=== PATIENT | male | born 1965 | race Caucasian/White ===

== ENCOUNTER 2016-07-24 16:11 | Emergency (ER) | payer OTHER ==
[~2016-07-24] VITALS: Ht 177.8 cm; Wt 99.6 kg
[2016-07-24 16:16] VITALS: TEMP 37
[2016-07-24] MEDS ORDERED: ASPIRIN 324 MG CHEW PO STA (16:27)
[2016-07-24] MEDS ORDERED: BUPR75TA20 PO (16:27)
[2016-07-24] MEDS ORDERED: ATOR-26 PO (16:27)
[2016-07-24] MEDS ORDERED: GLIP5TAB3 PO (16:27)
[2016-07-24] MEDS ORDERED: DPKEC500 PO (16:27)
[2016-07-24] MEDS ORDERED: METF-384 PO (16:27)
[2016-07-24] MEDS ORDERED: ASPCH81X PO (16:27)
[2016-07-24] MEDS ORDERED: IBUPROFEN 200 MG TAB PO STA (16:27)
[2016-07-24] MEDS ORDERED: ACETAMINOPHEN 500 MG TAB PO STA (16:27)
[2016-07-24] MEDS ORDERED: FLUO20CA35 PO (16:27)
--- NOTE | 2016-07-24 16:35 | EMERGENCY ROOM VISIT NOTE ---
History Report prepared by Ancelmo: Jen Sethi Under the Supervision of: Dr. Regina Fam M.D. First contact with patient: 16:18 Chief Complaint: CHEST PAIN Stated Complaint: CHEST PAIN /FR [facility] Nursing Triage Summary: Pt arrives via ALS litter for eval of left sided chest pain that began at 0810 and has been intermittent. Pt reports pain into left arm. SOB, nausea. Medic reports pain is reproducible with palpation. Pt has a pacer that was checked yesterday in [place]. History of Present Illness The patient is a 50 year old male who presents to the Emergency Room via ALS with complaints of left sided chest pain that radiates down left arm. This pain has been intermittent since around 0810 this morning. Each episode lasts around 10 minutes. It is worse with deep breathing. Associated symptoms include shortness of breath and nausea. The patient is not experiencing pain at this time. Source of History: patient Onset: 0810 this morning Position: chest (left) Timing: intermittent Modifying Factors (Worsening): breathing Associated Symptoms: + SOB, + nausea Review of Systems See HPI for pertinent positives & negatives. A total of 10 systems reviewed and were otherwise negative. Past Medical & Surgical Medical Problems: (1) Diabetes (2) Hypertension (3) Mitral valve prolapse Family History FH: HTN (hypertension) Social History Smoking Status: Never Smoker Drug Use: none Housing Status: other ([facility] ) Occupation Status: unemployed Current/Historical Medications Scheduled Aspirin (Aspirin Chewable), 81 MG PO DAILY Atorvastatin (Lipitor), 80 MG PO HS Bupropion (Wellbutrin), 75 MG PO BID Divalproex Sodium (Divalproex Sodium Dr), 500 MG PO BID Fluoxetine (Prozac), 40 MG PO QAM Glipizide (Glucotrol), 5 MG PO BID Metformin Hcl (Glucophage), 1,000 MG PO BID Allergies Coded Allergies: Sulfa Antibiotics (Unverified Allergy, Unknown, UNKNOWN, 07/24/16) Physical Exam Vital Signs Date Time Temp Pulse Resp B/P Pulse Ox O2 Delivery O2 Flow Rate FiO2 07/24/16 23:18 74 12 94 Room Air 07/24/16 22:58 155/97 07/24/16 22:28 162/94 07/24/16 22:18 76 23 94 Room Air 07/24/16 21:58 161/92 07/24/16 21:28 159/97 07/24/16 21:18 81 18 156/97 95 Room Air 07/24/16 21:18 85 17 95 Room Air 07/24/16 20:48 Room Air 07/24/16 19:25 73 18 142/91 95 Room Air 07/24/16 17:41 79 19 95 07/24/16 16:41 74 7 96 07/24/16 16:31 78 07/24/16 16:16 37.0 75 18 169/96 97 Room Air 07/24/16 16:15 169/96 Physical Exam CONSTITUTIONAL: No acute distress. HEENT: No icterus, moist mucous membranes NECK: No meningismus, trachea is midline. CARDIOVASCULAR: Regular rate, normal perfusion. Pacemaker in left chest. RESPIRATORY: Unlabored breathing. Clear to auscultation. GASTROINTESTINAL: Non-tender GENITOURINARY: No flank tenderness MUSCULOSKELETAL: Full range of motion NEUROLOGIC: No acute gross focal deficits. PSYCHIATRIC: Normal affect SKIN: Normal for ethnicity. Medical Decision & Procedures ER Provider Diagnostic Interpretation: X-ray results as stated below per interpretation by me and the radiologist. CHEST 2 VIEWS ROUTINE CLINICAL HISTORY: left sided cp today dyspnea COMPARISON STUDY: No previous studies for comparison. FINDINGS: Bipolar cardiac pacemaker in good position. Lungs are clear. Diaphragms smooth. Costophrenic angles are sharp. IMPRESSION: No acute process. Electronically signed by: Rogelio Andino M.D. 07/24/2016 5:24 PM Dictated Date/Time: 07/24/2016 5:23 PM Laboratory Results 07/24/16 16:30 Red Blood Count 4.79, Mean Corpuscular Volume 86.2, Mean Corpuscular Hemoglobin 29.6, Mean Corpuscular Hemoglobin Concent 34.4, Mean Platelet Volume 9.5, Neutrophils (%) (Auto) 66.6, Lymphocytes (%) (Auto) 20.3, Monocytes (%) (Auto) 12.1, Eosinophils (%) (Auto) 0.6, Basophils (%) (Auto) 0.2, Neutrophils # (Auto ) 5.34, Lymphocytes # (Auto) 1.63, Monocytes # (Auto) 0.97, Eosinophils # (Auto ) 0.05, Basophils # (Auto) 0.02 07/24/16 16:30 Test 07/24/16 16:30 2/16/17 18:47 White Blood Count 8.03 K/uL (4.8-10.8) Red Blood Count 4.79 M/uL (4.7-6.1) Hemoglobin 14.2 g/dL (14.0-18.0) Hematocrit 41.3 % (42-52) Mean Corpuscular Volume 86.2 fL (80-100) Mean Corpuscular Hemoglobin 29.6 pg (25-34) Mean Corpuscular Hemoglobin Concent 34.4 g/dl (32-36) Platelet Count 270 K/uL (130-400) Mean Platelet Volume 9.5 fL (7.4-10.4) Neutrophils (%) (Auto) 66.6 % Lymphocytes (%) (Auto) 20.3 % Monocytes (%) (Auto) 12.1 % Eosinophils (%) (Auto) 0.6 % Basophils (%) (Auto) 0.2 % Neutrophils # (Auto) 5.34 K/uL (1.4-6.5) Lymphocytes # (Auto) 1.63 K/uL (1.2-3.4) Monocytes # (Auto) 0.97 K/uL (0.11-0.59) Eosinophils # (Auto) 0.05 K/uL (0-0.5) Basophils # (Auto) 0.02 K/uL (0-0.2) RDW Standard Deviation 47.2 fL (36.4-46.3) RDW Coefficient of Variation 14.7 % (11.5-14.5) Immature Granulocyte % (Auto) 0.2 % Immature Granulocyte # (Auto) 0.02 K/uL (0.00-0.02) Prothrombin Time 11.3 SECONDS (9.0-12.0) Prothromb Time International Ratio 1.1 (0.9-1.1) Activated Partial Thromboplast Time 32.0 SECONDS (21.0-31.0) Partial Thromboplastin Ratio 1.2 D-Dimer < 190 ug/L FEU (0-500) Anion Gap 12.0 mmol/L (3-11) Est Creatinine Clear Calc Drug Dose 120.3 ml/min Estimated GFR () 116.1 Estimated GFR (Non- 100.2 BUN/Creatinine Ratio 13.3 (10-20) Calcium Level 8.8 mg/dl (8.5-10.1) Total Bilirubin 0.4 mg/dl (0.2-1) Aspartate Amino Transf (AST/SGOT) 12 U/L (15-37) Alanine Aminotransferase (ALT/SGPT) 23 U/L (12-78) Alkaline Phosphatase 83 U/L (45-117) Total Protein 7.1 gm/dl (6.4-8.2) Albumin 3.5 gm/dl (3.4-5.0) Globulin 3.6 gm/dl (2.5-4.0) Albumin/Globulin Ratio 1.0 (0.9-2) Troponin I < 0.015 ng/ml (0-0.045) Labs reviewed by ED physician. Medications Administered Medications (Trade) Dose Ordered Sig/Elizabeth Route Start Time Stop Time Status Last Admin Dose Admin Acetaminophen (Tylenol Tab) 1,000 mg NOW STAT PO 07/24/16 16:27 2 16:31 DC 07/24/16 17:00 1,000 MG Ibuprofen (Advil Tab) 400 mg NOW STAT PO 07/24/16 16:27 07/24/16 16:31 DC 07/24/16 17:01 400 MG Aspirin (Aspirin Chew) 324 mg NOW STAT PO 07/24/16 16:27 07/24/16 16:31 DC 07/24/16 17:00 324 MG ECG Indication: chest pain Rate (beats per minute): 74 Rhythm: normal sinus Findings: no ectopy, other (Normal axis, non specific ST segement ) ED Course 162: Past medical records reviewed. The patient was evaluated in room B10. A complete history and physical examination was performed. 1627: Ordered Aspirin 324 mg PO, Advil Tablet 400 mg PO, Tylenol Tablet 1,000 mg PO. 2020: I discussed the patient's case with Dr. Mcgowan ([facility] [place] [facility]). He will evaluate the patient for further management and care. Medical Decision Differential diagnoses include but are not limited to; musculoskeletal pain, cardiac PE. 50-year-old presents into the emergency department for evaluation of intermittent chest pain for several hours today. This is associated with shortness of breath at times and has lasted as long as 10-15 minutes. He's presently asymptomatic on my initial ER evaluation. He is noted to have several risk factors including diabetes. EKG satisfactory and first 2 troponins within normal limits. Admission arranged with hospitalist. Consults Time Called: 1958 Consulting Physician: Dr. Mcgowan ([facility] [place] [facility]) Returned Call: 2019 I discussed the patient's case with Dr. Mcgowan ([facility] [place] [facility]). He will evaluate the patient for further management and care. Impression Primary Impression: Chest pain, precordial Scribe Attestation The scribe's documentation has been prepared under my direction and personally reviewed by me in its entirety. I confirm that the note above accurately reflects all work, treatment, procedures, and medical decision making performed by me. Departure Information Dispostion Being Evaluated By Hospitalist Patient Instructions [facility]
[2016-07-24 16:45] LABS: BASO % 0.2 %; BASO ABS # 0.02 K/uL (0-0.2); COMPLETE YES; EOS % 0.6 %; HEMATOCRIT 41.3 % (42-52); IG% 0.2 %; LYMPH % 20.3 %; LYMPH ABS # 1.63 K/uL (1.2-3.4); MEAN CELL VOLUME 86.2 fL (80-100); MEAN CORPUSCULAR HEMOGLOBIN 29.6 pg (25-34); MEAN CORPUSCULAR HGB CONC 34.4 g/dl (32-36); MEAN PLATELET VOLUME 9.5 fL (7.4-10.4); MONO % 12.1 %; NEUT % 66.6 %; PLATELET COUNT 270 K/uL (130-400); RED BLOOD COUNT 4.79 M/uL (4.7-6.1); WHITE BLOOD COUNT 8.03 K/uL (4.8-10.8)
[2016-07-24 17:01] LABS: INR 1.1 (0.9-1.1); PARTIAL THROMBOPLASTIN RATIO 1.2; PROTHROMBIN TIME (PATIENT) 11.3 SECONDS (9.0-12.0)
[2016-07-24 17:13] LABS: BUN/CREATININE RATIO 13.3 (10-20); CALCIUM 8.8 mg/dl (8.5-10.1); CREATININE 0.85 mg/dl (0.60-1.40); POTASSIUM 4.1 mmol/L (3.5-5.1)
--- NOTE | 2016-07-24 17:25 | DIAGNOSTIC IMAGING REPORT ---
CHEST 2 VIEWS ROUTINE CLINICAL HISTORY: left sided cp today dyspnea COMPARISON STUDY: No previous studies for comparison. FINDINGS: Bipolar cardiac pacemaker in good position. Lungs are clear. Diaphragms smooth. Costophrenic angles are sharp. IMPRESSION: No acute process. Electronically signed by: Rogelio Andino M.D. 07/24/2016 5:24 PM Dictated Date/Time: 07/24/2016 5:23 PM
[2016-07-24 20:48] VITALS: Ht 177.8 cm; Wt 99.6 kg
--- NOTE | 2016-07-24 23:25 | Medical Consult ---
Consultation Date of Consultation: Jul 24, 2016. Attending Physician: History of Present Illness 50 y/o M w/Hx sinus pauses and a pacer, HTN, NIDDM. Does not have a history of cardiovascular disease. Presents from a local correctional facility with c/o intermittent CP with L arm pain beginning early AM. The pt was at [facility] one day prior for pacer interrogation. He states that he has had sinus pauses since 2002 when the initial pacer was placed. He had a few pauses while in the ER which did trigger his pacer. The pt was in the ER for an extended time period and had 2 sets of troponins which were negative. His EKG was repeated and reveals a NSR. His CP is reproducible and he has not had recurrent CP while in the ER. He did not have accompanying SOB, N/V, diaphoresis or lightheadedness. Past Medical/Surgical History Medical Problems: (1) Chest pain, precordial Status: Acute 2) HTN 3) NIDDM 4) Depression 5) Pacer placed for sinus pauses 2002 - 2011 Family History FH: HTN (hypertension) Social History Smoking Status: Former Smoker Drug Use: none Housing Status: other ([facility] ) Occupation Status: unemployed Allergies Coded Allergies: Sulfa Antibiotics (Unverified Allergy, Unknown, UNKNOWN, 07/24/16) Home Medications Reviewed Review of Systems Constitutional: No chills, No fever, No sweats Eyes: No eye pain, No worsening of vision ENT: No hearing loss, No nasal symptoms, No unusual epistaxis Respiratory: No cough, No sputum, No wheezing Cardiovascular: + chest pain, + problem reported (Sinus pauses as above ), No PND, No orthopnea Abdomen: No nausea, No pain, No vomiting Musculoskeletal: No joint pain, No muscle pain Genitourinary - Male: No dysuria, No hematuria, No urinary frequency Neurologic: No memory loss, No paralysis, No weakness Psychiatric: No depression symptoms Endocrine: No fatigue Hematologic / Lymphatic: No abnormal bleeding/bruising Integumentary: No rash Allergic / Immunologic: No environmental allergies, No seasonal allergies Physical Exam Date Time Temp Pulse Resp B/P Pulse Ox O2 Delivery O2 Flow Rate FiO2 07/24/16 21:18 81 18 156/97 95 Room Air 07/24/16 20:48 Room Air 07/24/16 19:25 73 18 142/91 95 Room Air 07/24/16 17:41 79 19 95 07/24/16 16:41 74 7 96 07/24/16 16:31 78 07/24/16 16:16 37.0 75 18 169/96 97 Room Air 07/24/16 16:15 169/96 General Appearance: WD/WN, no apparent distress Head: normocephalic, atraumatic Eyes: normal inspection, PERRL, EOMI ENT: normal ENT inspection, hearing grossly normal, TMs normal, pharynx normal Neck: supple, no JVD Respiratory/Chest: lungs clear, normal breath sounds, + pertinent finding ( tender to palpation of L ant chest) Cardiovascular: regular rate, rhythm, no edema, no gallop, no JVD, no murmur, normal peripheral pulses Abdomen/GI: normal bowel sounds, non tender, soft Back: normal inspection, no CVA tenderness Extremities/Musculoskelatal: normal inspection, no calf tenderness, normal capillary refill, no pedal edema, normal range of motion Neurologic/Psych: dry color mixer II-XII nml as tested, no motor/sensory deficits, alert, normal mood/affect, normal reflexes, oriented x 3 Skin: normal color, warm/dry, no rash Laboratory Results Last 24 Hours Test 07/24/16 16:30 07/24/16 18:47 White Blood Count 8.03 K/uL Red Blood Count 4.79 M/uL Hemoglobin 14.2 g/dL Hematocrit 41.3 % Mean Corpuscular Volume 86.2 fL Mean Corpuscular Hemoglobin 29.6 pg Mean Corpuscular Hemoglobin Concent 34.4 g/dl Platelet Count 270 K/uL Mean Platelet Volume 9.5 fL Neutrophils (%) (Auto) 66.6 % Lymphocytes (%) (Auto) 20.3 % Monocytes (%) (Auto) 12.1 % Eosinophils (%) (Auto) 0.6 % Basophils (%) (Auto) 0.2 % Neutrophils # (Auto) 5.34 K/uL Lymphocytes # (Auto) 1.63 K/uL Monocytes # (Auto) 0.97 K/uL Eosinophils # (Auto) 0.05 K/uL Basophils # (Auto) 0.02 K/uL RDW Standard Deviation 47.2 fL RDW Coefficient of Variation 14.7 % Immature Granulocyte % (Auto) 0.2 % Immature Granulocyte # (Auto) 0.02 K/uL Prothrombin Time 11.3 SECONDS Prothromb Time International Ratio 1.1 Activated Partial Thromboplast Time 32.0 SECONDS Partial Thromboplastin Ratio 1.2 D-Dimer < 190 ug/L FEU Sodium Level 139 mmol/L Potassium Level 4.1 mmol/L Chloride Level 105 mmol/L Carbon Dioxide Level 22 mmol/L Anion Gap 12.0 mmol/L Blood Urea Nitrogen 11 mg/dl Creatinine 0.85 mg/dl Est Creatinine Clear Calc Drug Dose 120.3 ml/min Estimated GFR () 116.1 Estimated GFR (Non- 100.2 BUN/Creatinine Ratio 13.3 Random Glucose 66 mg/dl Calcium Level 8.8 mg/dl Total Bilirubin 0.4 mg/dl Aspartate Amino Transf (AST/SGOT) 12 U/L Alanine Aminotransferase (ALT/SGPT) 23 U/L Alkaline Phosphatase 83 U/L Troponin I < 0.015 ng/ml < 0.015 ng/ml Total Protein 7.1 gm/dl Albumin 3.5 gm/dl Globulin 3.6 gm/dl Albumin/Globulin Ratio 1.0 Assessment & Plan 50 y/o M w/Hx sinus pauses and a pacer, HTN, NIDDM. Does not have a history of cardiovascular disease. Presents from a local correctional facility with c/o intermittent CP with L arm pain beginning early AM. The pt was at [facility] one day prior for pacer interrogation. He states that he has had sinus pauses since 2002 when the initial pacer was placed. He had a few pauses while in the ER which did trigger his pacer. The pt was in the ER for an extended time period and had 2 sets of troponins which were negative. His EKG was repeated and reveals a NSR. His CP is reproducible and he has not had recurrent CP while in the ER. He did not have accompanying SOB, N/V, diaphoresis or lightheadedness. 1) CP - currently resolved - trop (-) x 2 - EKG x 2 NSR - pain in chest reproducible O/E Advise on D/C and outpt stress recommended due to risk factors of HTN and NIDDM 2) Pacer - sinus pauses - pain did not correlate with occasional pauses in the ER - pacer is functional and was interrogated one day prior 3) HTN - cont home meds - normotensive in hospital 4) NIDDM - cont Glipizide - Metformin
--- NOTE | 2016-07-25 01:53 | Discharge Instructions ---
Discharge Instructions Admission Reason for Admission: Chest Pain /Fr [facility] Discharge Discharge Diagnosis / Problem: CP Discharge Goals Goal(s): Diagnostic testing Activity Recommendations Activity Limitations: per Instructions/Follow-up section Lifting Limitations: none Exercise/Sports Limitations: until after follow-up appointment May Resume Sexual Activity: after follow-up appointment . Instructions / Follow-Up Instructions / Follow-Up Stress test to be scheduled per correctional facility Current Hospital Diet Patient's current hospital diet: Regular Diet, AHA Diet (Heart Healthy) Discharge Diet Recommended Diet: AHA Diet (Heart Healthy), Diabetes Type 2 Diet Fluid Restriction: None Pending Studies Studies pending at discharge: no Laboratory Results Trop (-) x 2 Medical Emergencies . Who to Call and When: Medical Emergencies: If at any time you feel your situation is an emergency, please call 911 immediately. . Non-Emergent Contact Non-Emergency issues call your: Primary Care Provider . . "Provider Documentation" section prepared by Heron Mcgowan. VTE Core Measure Inpt VTE Proph given/why not?: Treatment not indicated
[2016-07-25 01:58] VITALS: BP 152/90
[2016-07-25 02:02] VITALS: PULSE 77; O2SAT 95
== END 2016-07-25 02:20 | disposition home or self-care (01) ==
LOC: EDBD 16:11 → C.EDB 16:15
DX: R07.2 Precordial pain (principal); I10 Essential (primary) hypertension; E11.9 Type 2 diabetes mellitus without complications; I34.1 Nonrheumatic mitral (valve) prolapse; Z79.82 Long term (current) use of aspirin; Z79.84 Long term (current) use of oral hypoglycemic drugs; Z79.899 Other long term (current) drug therapy; Z88.2 Allergy status to sulfonamides; Z82.49 Family history of ischemic heart disease and other diseases of the circulatory system

== ENCOUNTER → 2016-09-11 | Outpatient (CLI) | payer OTHER ==
[~2016-09-11] MED LIST: ASPCH81X PO; ATOR-26 PO; BUPR75TA20 PO; DIPH25CA48 PO; DPKEC500 PO; FLUO20CA35 PO; GLIP5TAB3 PO; METF-384 PO
--- NOTE | 2016-09-11 16:43 | EXERCISE STRESS TEST ---
ORDERING PHYSICIAN: Dr. Gupta of [facility]. TIME: 16:17 p.m. PROCEDURE: 1. Exercise treadmill stress testing. INDICATIONS: 1. Chest pain. CONSENT: Informed written consent was obtained. PROCEDURAL DETAILS: The patient exercised as per standard Mahesh protocol. He exercised a total of 2 minutes and 29 seconds, which was within the first stage of the Mahesh protocol. He achieved 4.6 mets. The baseline heart rate was 97 beats per minute and sosa to a maximum of 157 beats per minute. This represents 93% maximum predicted heart rate. The resting blood pressure was 156/84 mmHg. Peak blood pressure was 213/82 mmHg. The patient reported shortness of breath. There was no chest pain reported. Study was terminated due to shortness of breath and fatigue. Resting ECG demonstrated sinus rhythm, 100 beats per minute. Exercise ECG demonstrated no arrhythmia. There was [address] depression in leads III, IV and V6. There was [address] depression in leads II and V5. ST changes returned to baseline by 5 minutes and 15 seconds into recovery. IMPRESSION: 1. Abnormal exercise stress electrocardiogram with [address] depression in leads III, aVF, and V6, which returned to baseline by 5 minutes and 15 seconds into recovery. 2. Target heart rate attained, achieving 93% maximum predicted heart rate. 3. Exertional dyspnea reported. 4. No chest pain. 5. Hypertensive response to exercise. 6. No arrhythmia. 7. Poor exercise tolerance; 4.6 mets.
== END ==
LOC: C.CPL 09:44
PROVIDERS: ATTEND Physician Assistant Medical
DX: R07.9 Chest pain, unspecified (principal); I49.5 Sick sinus syndrome; E11.9 Type 2 diabetes mellitus without complications; I10 Essential (primary) hypertension; E78.5 Hyperlipidemia, unspecified; F33.1 Major depressive disorder, recurrent, moderate

== ENCOUNTER 2017-01-14 10:11 | Emergency (ER) | payer OTHER ==
[~2017-01-14] VITALS: Ht 180.3 cm; Wt 110.8 kg
[~2017-01-14 10:11] MED LIST changes: -DIPH25CA48 PO
[2017-01-14 10:15] VITALS: TEMP 36.9; Ht 180.3 cm; Wt 110.8 kg
[2017-01-14 10:42] VITALS: O2SAT 94
[2017-01-14] MEDS ORDERED: BND25CL PO (11:02)
--- NOTE | 2017-01-14 11:26 | DIAGNOSTIC IMAGING REPORT ---
CHEST ONE VIEW PORTABLE HISTORY: Atypical Chest Pain COMPARISON: Chest 07/24/2016. FINDINGS: A few linear bibasilar densities are not significantly changed. This favors scarring or atelectasis. Otherwise, the lungs are clear. No evidence for pulmonary edema. No pleural effusions. No pneumothorax. The heart is normal in size. Left-sided pacemaker. Cervical spinal fusion hardware. IMPRESSION: No significant change compared to the prior study. No acute process. Electronically signed by: Atul Bynum M.D. 01/14/2017 11:25 AM Dictated Date/Time: 01/14/2017 11:24 AM
[2017-01-14 11:41] LABS: BASO % 0.5 %; BASO ABS # 0.03 K/uL (0-0.2); COMPLETE YES; EOS % 0.6 %; HEMATOCRIT 40.6 % (42-52); IG% 0.2 %; LYMPH % 17.5 %; LYMPH ABS # 1.15 K/uL (1.2-3.4); MEAN CELL VOLUME 87.9 fL (80-100); MEAN CORPUSCULAR HEMOGLOBIN 29.4 pg (25-34); MEAN CORPUSCULAR HGB CONC 33.5 g/dl (32-36); MEAN PLATELET VOLUME 9.8 fL (7.4-10.4); NEUT % 69.2 %; PLATELET COUNT 292 K/uL (130-400); RED BLOOD COUNT 4.62 M/uL (4.7-6.1); WHITE BLOOD COUNT 6.56 K/uL (4.8-10.8)
[2017-01-14 11:47] LABS: BLOOD UREA NITROGEN 10 mg/dl (7-18); CALCIUM 8.7 mg/dl (8.5-10.1); CARBON DIOXIDE 26 mmol/L (21-32); CHLORIDE 106 mmol/L (98-107); CREATININE 0.86 mg/dl (0.60-1.40); GLUCOSE 73 mg/dl (70-99); POTASSIUM 4.3 mmol/L (3.5-5.1); SODIUM 138 mmol/L (136-145)
--- NOTE | 2017-01-14 14:07 | DIAGNOSTIC IMAGING REPORT ---
BILATERAL LOWER EXTREMITY VENOUS DOPPLER CLINICAL HISTORY: Bilateral lower extremity swelling. Shortness of breath. COMPARISON STUDY: No previous studies for comparison. TECHNIQUE: Sonography of the deep venous system of the bilateral lower extremities was performed. Compression and augmentation were evaluated. FINDINGS: The bilateral common femoral, superficial femoral and popliteal veins were compressible. Augmentation was normal. Flow was shown within the deep calf vessels. IMPRESSION: No evidence of deep venous thrombus within the bilateral lower extremities. Electronically signed by: David Samayoa M.D. 01/14/2017 2:05 PM Dictated Date/Time: 01/14/2017 2:03 PM
[2017-01-14] MEDS ORDERED: FUROSEMIDE 40 MG/4 ML VIAL IV STA (14:15)
--- NOTE | 2017-01-14 15:34 | EMERGENCY ROOM VISIT NOTE ---
History Report prepared by Ancelmo: García Madrigal Under the Supervision of: Dr. Taj Fernandez D.O. First contact with patient: 10:42 Chief Complaint: RESPIRATORY PROBLEMS Stated Complaint: CHF Nursing Triage Summary: pt reports sob started this am at 0615. has productive blackish/jennings flem. sob while sitting still. denies any chest pain History of Present Illness The patient is a 51 year old male who presents to the Emergency Room with complaints of constant shortness of breath starting around 0615 this morning. The patient states that when he woke up he started having shortness of breath which is worsened while laying down and is improved with sitting up. He states that he was having some diabetic foot pain as well, he has been gaining about 50 pounds in the past month, and he has been getting swelling in his legs. The patient states that he has a history of heart attacks, and he has a pacemaker. He states that he does not have a history of heart failure, and he just recently started Depakote for depression. Pt denies headache, change in vision , fevers, chest pain, nausea, vomiting, diarrhea, pain with urination, and melena. No swelling of his calves, no coughing up blood, no previous clots, no recent surgeries, and no recent trips. [facility] discussion with the jail they note that he has gained 6 pounds since December 29. Source of History: patient Onset: 0615 this morning Position: other (global) Quality: other (shortness of breath) Timing: constant Modifying Factors (Worsening): other (lying down) Modifying Factors (Relieving): other (sitting up) Note: Associated symptoms: Weight gain Review of Systems See HPI for pertinent positives & negatives. A total of 10 systems reviewed and were otherwise negative. Past Medical & Surgical Medical Problems: (1) Diabetes (2) Hypertension (3) Mitral valve prolapse Family History FH: HTN (hypertension) Social History Smoking Status: Current Every Day Smoker Drug Use: none Housing Status: other Occupation Status: unemployed Current/Historical Medications Scheduled Aspirin (Aspirin Chewable), 81 MG PO DAILY Atorvastatin (Lipitor), 80 MG PO HS Diphenhydramine HCl (Diphenhydramine HCl), 25 MG PO HS Divalproex Sodium (Divalproex Sodium Dr), 500 MG PO BID Fluoxetine (Prozac), 60 MG PO QAM Glipizide (Glucotrol), 5 MG PO BID Metformin Hcl (Glucophage), 1,000 MG PO BID Allergies Coded Allergies: Sulfa Antibiotics (Unverified Allergy, Unknown, UNKNOWN, 07/24/16) Physical Exam Vital Signs Date Time Temp Pulse Resp B/P (MAP) Pulse Ox O2 Delivery O2 Flow Rate FiO2 01/14/17 15:19 74 01/14/17 14:31 154/100 01/14/17 14:21 76 27 94 01/14/17 14:11 154/88 01/14/17 13:31 148/94 01/14/17 13:21 73 15 96 01/14/17 13:06 87 19 97 01/14/17 13:01 170/95 01/14/17 12:51 74 14 95 01/14/17 12:36 68 1 94 01/14/17 12:31 156/82 96 01/14/17 12:19 69 16 94 01/14/17 12:04 70 18 95 01/14/17 12:00 145/92 01/14/17 11:49 78 26 95 01/14/17 11:34 81 17 96 01/14/17 11:29 144/84 01/14/17 11:26 71 20 93 01/14/17 11:21 71 19 93 01/14/17 11:16 77 15 95 01/14/17 11:11 73 15 93 01/14/17 11:09 82 01/14/17 11:06 72 25 92 01/14/17 11:01 76 15 95 01/14/17 10:42 94 Room Air 01/14/17 10:42 179/89 01/14/17 10:39 Room Air 01/14/17 10:15 36.9 94 20 163/100 93 Room Air Physical Exam GENERAL: Sitting up in bed, disheveled, no acute distress, non-toxic EYE EXAM: normal conjunctiva OROPHARYNX: no exudate, no erythema, lips, buccal mucosa, and tongue normal and mucous membranes are moist NECK: supple, no nuchal rigidity, no adenopathy, non-tender, no JVD LUNGS: Clear to auscultation. Normal chest wall mechanics HEART: no murmurs, S1 normal and S2 normal ABDOMEN: abdomen soft, non-tender, normo-active bowel sounds, no masses, no rebound or guarding. BACK: Back is symmetrical on inspection and there is no deformity, no midline tenderness, no CVA tenderness. SKIN: no rashes and no bruising UPPER EXTREMITIES: upper extremities are grossly normal. LOWER EXTREMITIES: Faint pitting edema in the bilateral lower extremities NEURO EXAM: Normal sensorium, cranial nerves II-XII grossly intact, normal speech, no gross weakness of arms, no gross weakness of legs. Gross sensation intact. Medical Decision & Procedures ER Provider Diagnostic Interpretation: Radiology results as stated below per my review and the radiologist's interpretation: CHEST ONE VIEW PORTABLE HISTORY: Atypical Chest Pain COMPARISON: Chest 07/24/2016. FINDINGS: A few linear bibasilar densities are not significantly changed. This favors scarring or atelectasis. Otherwise, the lungs are clear. No evidence for pulmonary edema. No pleural effusions. No pneumothorax. The heart is normal in size. Left-sided pacemaker. Cervical spinal fusion hardware. IMPRESSION: No significant change compared to the prior study. No acute process. Electronically signed by: Atul Bynum M.D. 01/14/2017 11:25 AM Dictated Date/Time: 01/14/2017 11:24 AM BILATERAL LOWER EXTREMITY VENOUS DOPPLER CLINICAL HISTORY: Bilateral lower extremity swelling. Shortness of breath. COMPARISON STUDY: No previous studies for comparison. TECHNIQUE: Sonography of the deep venous system of the bilateral lower extremities was performed. Compression and augmentation were evaluated. FINDINGS: The bilateral common femoral, superficial femoral and popliteal veins were compressible. Augmentation was normal. Flow was shown within the deep calf vessels. IMPRESSION: No evidence of deep venous thrombus within the bilateral lower extremities. Electronically signed by: David Samayoa M.D. 01/14/2017 2:05 PM Dictated Date/Time: 01/14/2017 2:03 PM Laboratory Results 01/14/17 10:50 Red Blood Count 4.62, Mean Corpuscular Volume 87.9, Mean Corpuscular Hemoglobin 29.4, Mean Corpuscular Hemoglobin Concent 33.5, Mean Platelet Volume 9.8, Neutrophils (%) (Auto) 69.2, Lymphocytes (%) (Auto) 17.5, Monocytes (%) (Auto) 12.0, Eosinophils (%) (Auto) 0.6, Basophils (%) (Auto) 0.5, Neutrophils # (Auto ) 4.54, Lymphocytes # (Auto) 1.15, Monocytes # (Auto) 0.79, Eosinophils # (Auto ) 0.04, Basophils # (Auto) 0.03 01/14/17 10:50 Test 01/14/17 10:50 01/14/17 13:39 01/14/17 14:25 White Blood Count 6.56 K/uL (4.8-10.8) Red Blood Count 4.62 M/uL (4.7-6.1) Hemoglobin 13.6 g/dL (14.0-18.0) Hematocrit 40.6 % (42-52) Mean Corpuscular Volume 87.9 fL (80-100) Mean Corpuscular Hemoglobin 29.4 pg (25-34) Mean Corpuscular Hemoglobin Concent 33.5 g/dl (32-36) Platelet Count 292 K/uL (130-400) Mean Platelet Volume 9.8 fL (7.4-10.4) Neutrophils (%) (Auto) 69.2 % Lymphocytes (%) (Auto) 17.5 % Monocytes (%) (Auto) 12.0 % Eosinophils (%) (Auto) 0.6 % Basophils (%) (Auto) 0.5 % Neutrophils # (Auto) 4.54 K/uL (1.4-6.5) Lymphocytes # (Auto) 1.15 K/uL (1.2-3.4) Monocytes # (Auto) 0.79 K/uL (0.11-0.59) Eosinophils # (Auto) 0.04 K/uL (0-0.5) Basophils # (Auto) 0.03 K/uL (0-0.2) RDW Standard Deviation 49.5 fL (36.4-46.3) RDW Coefficient of Variation 15.4 % (11.5-14.5) Immature Granulocyte % (Auto) 0.2 % Immature Granulocyte # (Auto) 0.01 K/uL (0.00-0.02) D-Dimer 200 ug/L FEU (0-500) Anion Gap 6.0 mmol/L (3-11) Est Creatinine Clear Calc Drug Dose 125.7 ml/min Estimated GFR () 114.7 Estimated GFR (Non- 99.0 BUN/Creatinine Ratio 12.0 (10-20) Calcium Level 8.7 mg/dl (8.5-10.1) Total Creatine Kinase 96 U/L (39-308) Creatine Kinase MB < 0.5 ng/ml (0.5-3.6) Creatine Kinase MB Ratio (0-3.0) Troponin I < 0.015 ng/ml (0-0.045) Pro-B-Type Natriuretic Peptide 126 pg/ml (0-900) Bedside Troponin I < 0.030 ng/ml (0-0.045) Valproic Acid (Depakene) Level 35 mcg/ml (50-100) Laboratory results per my review. Medications Administered Medications (Trade) Dose Ordered Sig/Elizabeth Route Start Time Stop Time Status Last Admin Dose Admin Furosemide (Lasix Inj) 40 mg NOW STAT IV 01/14/17 14:15 01/14/17 14:16 DC 01/14/17 14:35 40 MG ECG Indication: SOB/dyspnea, other (swelling) Rate (beats per minute): 81 Rhythm: sinus rhythm Findings: no ectopy, other (Normal axis) ED Course ED COURSE: Vital signs were reviewed and showed normal vitals The patients medical record was reviewed The above diagnostic studies were performed and reviewed. ED treatments and interventions as stated above. 1042: The patient was evaluated in room B8. A complete history and physical examination was performed. 1339: I reevaluated the patient, and he was doing well. 1415: Lasix Inj 40mg IV 1520: I discussed the patient's case with KAROL Gupta, and he states that he will follow up with the patient. 1530: Upon reevaluation, the patient is feeling well.I discussed my findings with the patient and he understands and agrees with the treatment plan. His pacemaker was interrogated, and no abnormalities were found. Based on the patients age, coexisting illnesses, exam and lab findings the decision to treat as an outpatient was made. The patient remained stable while under my care. The patient appeared well at the time of discharge. Medical Decision Differential diagnoses includes but is not limited to pneumonia, bronchitis, COPD/Asthma exacerbation, pneumothorax, pulmonary embolism, congestive heart failure, acute coronary syndrome Patient is a 51-year-old male with a past medical history of a pacemaker from previous [place] who presents the ER for shortness of breath and weight gain. He reports these gained over 50 pounds in the past month. Discussed with the jail and they note that he has gained 6 pounds since December 29. He was recently started on Depakote during which time he has gained this week. He has mild pitting edema. Duplex of the lower extremity is were unremarkable. D- dimer was negative. Troponins were negative 2. EKG shows no obvious ischemia. Chest x-ray was unremarkable without edema. Remainder labs were fairly benign. BNP was sent were negative. Patient was given a dose of Lasix as a believe the symptoms are likely secondary to mild volume overload. I rediscussed the case with the SHORTY Gupta who will schedule a follow-up with cardiology, and reevaluate him when he returns the jail. Discussed with Pt concerning signs and symptoms to watch out for. Pt was instructed to follow up with their PCP and discussed with the patient their option to return to the ED at anytime for persistent or worsening symptoms. The appropriate anticipatory guidance and out-patient management, including indications for return to the emergency department, were explained at length to the patient and understood. Medication Reconcilliation Current Medication List: was personally reviewed by me Blood Pressure Screening Patient's blood pressure: Elevated blood pressure Blood pressure disposition: Elevated BP felt to be situational Consults Time Called: 1515 Consulting Physician: KAROL Gupta Returned Call: 1520 I discussed the patient's case with KAROL Gupta, and he states that he will follow up with the patient. Impression Primary Impression: Edema Additional Impressions: Dyspnea Hypertension Scribe Attestation The scribe's documentation has been prepared under my direction and personally reviewed by me in its entirety. I confirm that the note above accurately reflects all work, treatment, procedures, and medical decision making performed by me. Departure Information Dispostion Home / Self-Care Referrals Carin CORDOVA (PCP) Forms HOME CARE DOCUMENTATION FORM, IMPORTANT VISIT INFORMATION, WORK / SCHOOL INSTRUCTIONS Patient Instructions ED Dyspnea Shortness of Breath, ED Leg Swelling Bilateral, My [facility] Additional Instructions Please follow up with your primary care doctor with in the next 24 hours. Any worsening of your symptoms, please return to the ED immediately. This includes any fevers greater than 100.4, worsening pain, chest pain, shortness breath, persistent nausea, vomiting, unable to eat or drink, or any other concerning signs or symptoms from your standpoint. Problem Qualifiers Primary Impression: Edema Edema type: unspecified Qualified Codes: R60.9 - Edema, unspecified Additional Impressions: Dyspnea Dyspnea type: unspecified Qualified Codes: R06.00 - Dyspnea, unspecified Hypertension Hypertension type: unspecified Qualified Codes: I10 - Essential (primary) hypertension
[2017-01-14 16:01] VITALS: BP 149/84
[2017-01-14 16:06] VITALS: PULSE 86; O2SAT 97
== END 2017-01-14 16:20 | disposition home or self-care (01) ==
LOC: C.EDB 10:13
DX: R60.0 Localized edema (principal); R06.00 Dyspnea, unspecified; I10 Essential (primary) hypertension; R63.5 Abnormal weight gain; E11.40 Type 2 diabetes mellitus with diabetic neuropathy, unspecified; I25.2 Old myocardial infarction; F32.9 Major depressive disorder, single episode, unspecified; I34.1 Nonrheumatic mitral (valve) prolapse; F17.200 Nicotine dependence, unspecified, uncomplicated; Z95.0 Presence of cardiac pacemaker; Z82.49 Family history of ischemic heart disease and other diseases of the circulatory system; Z79.82 Long term (current) use of aspirin; Z79.84 Long term (current) use of oral hypoglycemic drugs